=== PATIENT | male | born 1950 | race Two or more races ===

== ENCOUNTER → 2017-06-17 | Outpatient (CLI) | payer BC | END | disposition home or self-care (01) | LOC: HKI 14:58 | DX: M25.511 Pain in right shoulder (principal) | CPT/HCPCS: Z7500 ==

== ENCOUNTER → 2017-08-10 | Outpatient (CLI) | payer BC | END | disposition home or self-care (01) | LOC: HKI 15:03 | DX: M75.101 Unspecified rotator cuff tear or rupture of right shoulder, not specified as traumatic (principal) | CPT/HCPCS: Z7500 ==